=== PATIENT | male | born 1965 | race Caucasian/White ===

== ENCOUNTER 2017-07-23 09:53 | Inpatient (IN) | payer OTHER ==
[~2017-07-23] VITALS: Ht 160 cm; Wt 55.5 kg
[2017-07-23] MEDS ORDERED: LOSA1TAB19 PO (11:32)
[2017-07-23] MEDS ORDERED: AMLO-147 PO (11:32)
[2017-07-23] MEDS ORDERED: ALLO100T PO (11:32)
[2017-07-23] MEDS ORDERED: ERGO500037 PO (11:32)
[2017-07-23] MEDS ORDERED: ASPI81TA3 PO (11:32)
[2017-07-23] MEDS ORDERED: CALC667T PO (11:32)
[2017-07-23] MEDS: AMLODIPINE 10 MG TAB PO SCH (12:30)
[2017-07-23] MEDS ORDERED: ONDA4SOL2 IV* (12:37)
[2017-07-23] MEDS ORDERED: ACET325T33 PO (12:37)
[2017-07-23 13:25] VITALS: BP 154/72; PULSE 78; RESP 20
[2017-07-23] MEDS ORDERED: DEXTROSE 50% 50 ML SYRINGE IV PRN ×2 (13:30)
[2017-07-23] MEDS ORDERED: GLUCAGON 1 MG INJ IM PRN (13:30)
[2017-07-23] MEDS ORDERED: GLUCOSE GEL 15 GRAM TUBE PO PRN ×2 (13:30)
[2017-07-23] MEDS ORDERED: GLUCOSE GEL 15 GRAM TUBE BUCCAL PRN (13:30)
[2017-07-23] MEDS: ASPIRIN 81 MG TAB PO SCH (13:35)
[2017-07-23] MEDS: HYDROCHLOROTHIAZIDE 12.5 MG CAP PO SCH (13:35)
[2017-07-23] MEDS: LOSARTAN 50 MG TAB PO SCH (13:35)
[2017-07-23 13:40] LABS: BASOPHILS % 0.4 % (0.0-2.0); EOSINOPHILS # 0.7 10^3/ul (0.0-0.5); EOSINOPHILS % 10.4 % (0.0-7.0); HEMATOCRIT 25.2 % (42.0-52.0); HEMOGLOBIN 8.5 g/dl (14.0-18.0); LYMPHOCYTES # 1.5 10^3/ul (0.8-2.9); LYMPHOCYTES % 20.9 % (15.0-51.0); MEAN CORPUSCULAR HEMOGLOBIN 28.7 pg (29.0-33.0); MEAN CORPUSCULAR HGB CONC 33.7 g/dl (32.0-37.0); MEAN CORPUSCULAR VOLUME 85.1 fl (82.0-101.0); MEAN PLATELET VOLUME 9.9 fl (7.4-10.4); MONOCYTE # 0.7 10^3/ul (0.3-0.9); MONOCYTES % 9.5 % (0.0-11.0); NEUTROPHIL # 4.1 10^3/ul (1.6-7.5); NEUTROPHILS % 58.5 % (39.0-77.0); PLATELET COUNT 294 10^3/UL (140-415); RED BLOOD COUNT 2.96 10^6/ul (4.70-6.10); RED CELL DISTRIBUTION WIDTH 12.9 % (11.5-14.5)
[2017-07-23 13:47] LABS: PROTIME 13.2 Sec (12.2-14.2)
[2017-07-23 13:48] LABS: PARTIAL THROMBOPLASTIN TIME 30.3 Sec (25.0-35.0)
[2017-07-23 13:49] LABS: ALBUMIN 3.7 g/dl (3.3-4.9); ALBUMIN/GLOBULIN RATIO 1.15; BILIRUBIN,INDIRECT 0.1 mg/dl (0-1.1); BILIRUBIN,TOTAL 0.1 mg/dl (0.2-1.3); CALCIUM 8.9 mg/dl (8.4-10.2); CREATININE 7.58 mg/dl (0.61-1.24); POTASSIUM 4.4 mmol/L (3.5-5.1); TOTAL PROTEIN 6.9 g/dl (6.1-8.1)
--- NOTE | 2017-07-23 14:04 | RADRPT ---
PROCEDURE: XR Chest. CLINICAL INDICATION: Cough and congestion. TECHNIQUE: Single frontal view. COMPARISON: None. FINDINGS: The lungs are clear. The heart size is normal. There is no pleural effusion. There is no pneumothorax. IMPRESSION: 1. Normal chest radiograph. RPTAT: QQ .Morgan Frederick MD, Date Time Electronically viewed and signed by .Morgan Frederick MD, on 07/23/2017 14:04 .R/
[2017-07-23 14:47] VITALS: BP 132/68; RESP 18
[2017-07-23] MEDS ORDERED: CALCIUM ACETATE 667 MG CAP PO SCH (17:35)
[2017-07-23] MEDS: CALCIUM ACETATE 667 MG CAP PO SCH (17:40)
[2017-07-23] MEDS: ERGOCALCIFEROL 50,000 UNIT CAP PO SCH (17:41)
[2017-07-23] MEDS: INSULIN ASPART [NOVOLOG] 3 ML PEN SC SCH ×2 (17:42→21:09)
[2017-07-23 18:10] LABS: HAAIG REFLEX REFLEX FILED
--- NOTE | 2017-07-23 18:30 | QN ---
Documentation Comment [id number] hp LATASHA SHRESTHA MD Jul 23, 2017 18:30
[2017-07-23 19:15] LABS: HEPATITIS B CORE ANTIBODY NEGATIVE (NEGATIVE)
[2017-07-23] MEDS ORDERED: DEXTROSE 5%-0.45% NACL 500 ML IV SCH (19:30)
[2017-07-23 20:00] VITALS: Ht 160 cm; Wt 55.5 kg
[2017-07-23 20:10] VITALS: BP 139/77; RESP 18
--- NOTE | 2017-07-23 20:34 | HP ---
DATE OF ADMISSION: 07/23/2017 HISTORY OF PRESENT ILLNESS: Alvaro Grady is a 51-year-old male who has history of CKD V, diabetes mellitus, hypertension, history of diabetic retinopathy, history of nephrotic-range proteinuria, was seen in the office by Dr. wolfe and patient noted to have stage V kidney disease and was instructed to have hemodialysis started with catheter placement. The patient was sent here to be admitted for Uruy-V-Naomhihm placement and initiation of hemodialysis. The patient agreed. Chest x-ray done, negative. The patient's laboratory data done shows sodium 130, potassium 4.4, BUN of 80 and creatinine 7.58, hematocrit 25.2, platelet count of 294. PAST MEDICAL HISTORY: Diabetes, hypertension, diabetic retinopathy, anemia, nephrotic-range proteinuria. ALLERGY HISTORY: NEGATIVE. FAMILY HISTORY: Diabetes and hypertension. SOCIAL HISTORY: Social drinking. MEDICATIONS AT HOME: Listed as: 1. Tylenol. 2. Allopurinol. 3. Amlodipine. 4. Aspirin. 5. PhosLo. 6. Vitamin D2. 7. Hydrochlorothiazide. 8. Losartan. 9. Zofran. REVIEW OF SYSTEMS: HEENT: Diabetic retinopathy. RESPIRATORY: Unremarkable. CARDIOVASCULAR: No chest pain, palpitations. ABDOMEN: Dyspepsia and poor p.o. intake. EXTREMITIES: No swelling. CENTRAL NERVOUS SYSTEM: No numbness, tingling. SKIN: Mild pruritus. PHYSICAL EXAMINATION: GENERAL: The patient is a pale-looking male, awake, alert. VITAL SIGNS: Stable. HEAD: Atraumatic, normocephalic. Pupils equal, reactive to light. NECK: Supple. There is no JVD. LUNGS: Clear. CARDIOVASCULAR: S1, S2 is normal. No rub or murmur. ABDOMEN: Soft, nontender. Bowel sounds present. No palpable mass or hepatosplenomegaly. EXTREMITIES: There is no cyanosis, clubbing, edema. CENTRAL NERVOUS SYSTEM: The patient is awake, alert with no focal deficit. LABORATORY DATA: As mentioned above. IMPRESSION: 1. The patient has chronic kidney disease V. 2. The patient has hypertension. 3. Diabetes mellitus. 4. Diabetic nephropathy. 5. Anemia of chronic kidney disease. 6. The patient has nephrotic-range proteinuria. PLAN: To give this patient diabetic renal diet, sliding scale, blood pressure medications to be resumed, Duqz-I-Ncaekure placement, hemodialysis, hepatitis panel. Orders were done. Dictated By: LATASHA SHRESTHA MD BS/CORTEZ Conf#: [id number] DID#: [id number]
[2017-07-24] VITALS (8 sets, daily range): BP systolic 133–168; BP diastolic 69–86; PULSE 78–84; RESP 18–21
[2017-07-24] MEDS: DEXTROSE 5%-0.45% NACL 500 ML IV SCH ×2 (00:24→20:38)
[2017-07-24] MEDS ORDERED: ACCU-CHEK XX SCH ×2 (02:00)
[2017-07-24] MEDS: ACCU-CHEK XX SCH (02:00)
[2017-07-24 06:17] LABS: ALBUMIN 3.4 g/dl (3.3-4.9); ALBUMIN/GLOBULIN RATIO 1.21; CALCIUM 8.5 mg/dl (8.4-10.2); CREATININE 7.61 mg/dl (0.61-1.24); POTASSIUM 4.9 mmol/L (3.5-5.1); TOTAL PROTEIN 6.2 g/dl (6.1-8.1)
[2017-07-24] MEDS: CALCIUM ACETATE 667 MG CAP PO SCH ×4 (07:35→17:22)
[2017-07-24] MEDS: ASPIRIN 81 MG TAB PO SCH (08:35)
[2017-07-24] MEDS: LOSARTAN 50 MG TAB PO SCH (08:36)
[2017-07-24] MEDS: AMLODIPINE 10 MG TAB PO SCH (08:36)
[2017-07-24] MEDS: HYDROCHLOROTHIAZIDE 12.5 MG CAP PO SCH (08:36)
[2017-07-24] MEDS: INSULIN ASPART [NOVOLOG] 3 ML PEN SC SCH ×4 (08:44→21:00)
[2017-07-24] MEDS ORDERED: HEPARIN 1000 UNITS/ML 10 ML INJ ONE (09:30)
[2017-07-24] MEDS ORDERED: LIDOCAINE 1% (MDV) 20 ML INJ ONE (09:30)
[2017-07-24] MEDS ORDERED: MIDAZOLAM 1 MG/ML 2 ML INJ ONE (10:00)
[2017-07-24] MEDS ORDERED: FENTAnyl 50 MCG/ML VIAL ONE (10:00)
--- NOTE | 2017-07-24 11:56 | RADRPT ---
PROCEDURE: PLACEMENT OF RIGHT INTERNAL JUGULAR VENOUS TUNNELED DIALYSIS CATHETER. CLINICAL INDICATION: Renal failure. TECHNIQUE: Prior to the procedure, informed consent was obtained. Risks including bleeding, infection, and pneu mothorax were explained to the patient and/or the patient's family. The patient and/or the patient's family understood and was willing to proceed. A procedural pause was performed. The patient's name, date of , and procedure to be performed were verified. The central line was inserted with all elements of maximal sterile barrier technique. All of the following were used: head covering, facial mask, sterile gown, sterile gloves, a large sterile sheet, hand hygiene, and 2% chlorhexidine for cutaneous antisepsis. The right neck and anterior/superior chest wall was prepped and draped in usu al sterile fashion. Limited sonography of the right neck was then performed. Noted is a patent right internal jugular ve in. Ultrasound images were recorded and stored in the patient's medical record. Following the local injection of Xylocaine, the right internal jugular vein was punctured under sono graphic guidance with a 20-gauge needle through which a 0.018 inch floppy tip guidewire was advanced into the superior vena cava. The tract was dilated to 5 Indonesian and the wire was then replaced with a 0.035 in Amplatz guidewire. A tunnel was then created from the anterior lateral aspect of the sup erior right chest wall to the puncture site in the neck and the catheter was pulled through the trac t. Serial dilatation was then performed and a 16 Indonesian peel away sheath was introduced. The 14.5 Indonesian 23cm tip to cuff Angiodynamics BioFlo DuraMax dialysis catheter was advanced through the 16 F rench peel-away sheath. The tip of the catheter was confirmed in position within the right atrium. T he peel-away sheath was removed. The 2 ports were each flushed with 2.3 ml of 1:1000 heparin. The c atheter was secured to the skin with 2-0 silk. The wound in the neck was closed with 4-0 Vicryl suture using subcuticular running technique. The site was dressed. The patient tolerated the proce dure well. COMPARISON: None. FINDINGS: Final radiographic images demonstrate the tip of the catheter in the upper right atrium. A total of 0.2 minutes of fluoroscopy time was used. The ultrasound images demonstrate the needle entering th e jugular vein. Ultrasound images were recorded and stored in the patient's medical record. 5 image s of the chest were obtained with image intensifier. IMPRESSION: 1. Percutaneous insertion of right internal jugular dialysis tunneled dialysis catheter under fluoro scopic and sonographic guidance. RPTAT: QQ .Morgan Frederick MD, MD Date Time Electronically viewed and signed by .Morgan Frederick MD, MD on 07/24/2017 11:56 .R/
[2017-07-24] MEDS: ERGOCALCIFEROL 50,000 UNIT CAP PO SCH (14:36)
--- NOTE | 2017-07-24 19:47 | PN ---
Date/Time of Note Date/Time of Note DATE: 07/24/17 TIME: 19:46 Assessment/Plan VTE Prophylaxis VTE Prophylaxis Intervention: other Lines/Catheters IV C[facility]ter Type (from [facility]): perma cath Assessment/Plan Chief Complaint/Hosp Course IMPRESSION: 1. The patient has chronic kidney disease V. 2. The patient has hypertension. 3. Diabetes mellitus. 4. Diabetic nephropathy. 5. Anemia of chronic kidney disease. 6. The patient has nephrotic-range proteinuria. 7 s/p permacath placement plan hd Problems: Subjective 24 Hr Interval Summary Respiratory: no complaints Cardiovascular: no complaints Gastrointestinal: no complaints Genitourinary: no complaints Exam/Review of Systems Vital Signs Vitals Vital Signs Date Time Temp Pulse Resp B/P Pulse Ox O2 Delivery O2 Flow Rate FiO2 07/24/17 15:30 82 07/24/17 15:30 16 07/24/17 08:07 98.0 133/75 100 07/23/17 13:25 Room Air Intake and Output 07/23/17 07/23/17 07/24/17 15:00 23:00 07:00 Intake Total 605 ml Balance 605 ml Exam Neck: supple Respiratory: clear to auscultation Cardiovascular: regular rate and rhythm Gastrointestinal: bowel sounds (+), soft Extremities: No edema Results Result Diagram: 07/23/17 1259 07/24/17 0510 Results 24 hrs Laboratory Tests Test 07/23/17 21:02 07/24/17 02:08 07/24/17 05:10 07/24/17 08:01 Bedside Glucose 230 H 194 182 Sodium Level 139 Potassium Level 4.9 Chloride Level 107 Carbon Dioxide Level 20 L Anion Gap 17 H Blood Urea Nitrogen 90 H Creatinine 7.61 H Glucose Level 165 Calcium Level 8.5 Total Bilirubin 0.0 L Direct Bilirubin 0.00 Indirect Bilirubin 0.0 Aspartate Amino Transf (AST/SGOT) 15 Alanine Aminotransferase (ALT/SGPT) 23 Alkaline Phosphatase 77 Total Protein 6.2 Albumin 3.4 Globulin 2.80 Albumin/Globulin Ratio 1.21 Test 07/24/17 12:04 07/24/17 17:14 Bedside Glucose 130 231 H Medications Medications Current Medications Amlodipine Besylate (Norvasc) 10 mg DAILY PO ; Start 07/23/17 at 12:30 Aspirin (Aspirin) 81 mg DAILY PO Last administered on 07/23/17t 13:35; Admin Dose 81 MG; Start 07/23/17 at 12:30 Losartan Potassium (Cozaar) 50 mg DAILY PO Last administered on 07/23/17 13: 35; Admin Dose 50 MG; Start 07/23/17 at 13:00 Hydrochlorothiazide (Hydrochlorothiazide) 12.5 mg DAILY PO Last administered on 07/23/17 13:35; Admin Dose 12.5 MG; Start 07/23/17 at 13:00 Diagnostic Test (Pha) (Accu-Chek) 1 ea 02 XX ; Start 07/24/17 at 02:00 Miscellaneous Information 1 ea NOTE XX ; Start 07/23/17 at 13:30 Glucose (Glutose) 15 gm Q15M PRN PO DECREASED GLUCOSE; Start 07/23/17 at 13:30 Glucose (Glutose) 22.5 gm Q15M PRN PO DECREASED GLUCOSE; Start 07/23/17 at 13: 30 Dextrose (D50w Syringe) 25 ml Q15M PRN IV DECREASED GLUCOSE; Start 07/23/17 at 13:30 Dextrose (D50w Syringe) 50 ml Q15M PRN IV DECREASED GLUCOSE; Start 07/23/17 at 13:30 Glucagon (Glucagen) 1 mg Q15M PRN IM DECREASED GLUCOSE; Start 07/23/17 at 13: 30 Glucose (Glutose) 15 gm Q15M PRN BUCCAL DECREASED GLUCOSE; Start 07/23/17 at 13:30 Ergocalciferol 00925 unit 50,000 unit MoTu PO Last administered on 07/24/17 14:36; Admin Dose 50,000 UNIT; Start 07/23/17 at 14:00 Dextrose/Sodium Chloride 500 ml @ 0 mls/hr Q0M IV ; Start 07/23/17 at 19:30 Dextrose/Sodium Chloride (D5-1/2ns) 500 ml @ 25 mls/hr Q20H IV Last administered on 07/24/17 00:24; Admin Dose 25 MLS/HR; Start 07/24/17 at 00:30 LATASHA SHRESTHA MD Jul 24, 2017 19:47
[2017-07-25] VITALS (8 sets, daily range): BP systolic 121–155; BP diastolic 70–79; PULSE 80–84; RESP 18
[2017-07-25] MEDS: ACCU-CHEK XX SCH (02:00)
[2017-07-25 06:35] LABS: CALCIUM 9.1 mg/dl (8.4-10.2); CREATININE 5.21 mg/dl (0.61-1.24); POTASSIUM 4.7 mmol/L (3.5-5.1)
[2017-07-25] MEDS: LOSARTAN 50 MG TAB PO SCH (09:00)
[2017-07-25] MEDS: AMLODIPINE 10 MG TAB PO SCH (09:00)
[2017-07-25] MEDS: HYDROCHLOROTHIAZIDE 12.5 MG CAP PO SCH (09:00)
[2017-07-25] MEDS: ASPIRIN 81 MG TAB PO SCH (09:18)
[2017-07-25] MEDS: INSULIN ASPART [NOVOLOG] 3 ML PEN SC SCH ×4 (09:18→20:20)
[2017-07-25] MEDS: CALCIUM ACETATE 667 MG CAP PO SCH ×3 (09:18→17:21)
[2017-07-25] MEDS: DEXTROSE 5%-0.45% NACL 500 ML IV SCH (17:22)
--- NOTE | 2017-07-25 19:14 | PN ---
Date/Time of Note Date/Time of Note DATE: 07/25/17 TIME: 19:13 Assessment/Plan VTE Prophylaxis VTE Prophylaxis Intervention: other Lines/Catheters [facility] Assessment/Plan Chief Complaint/Hosp Course IMPRESSION: 1. The patient has chronic kidney disease V.on hd 2. The patient has hypertension. 3. Diabetes mellitus. 4. Diabetic nephropathy. 5. Anemia of chronic kidney disease. 6. The patient has nephrotic-range proteinuria. 7 s/p permacath placement on hd plan hd arrange for out pt hd Problems: Subjective 24 Hr Interval Summary Respiratory: no complaints Cardiovascular: no complaints Gastrointestinal: no complaints Exam/Review of Systems Vital Signs Vitals Vital Signs Date Time Temp Pulse Resp B/P Pulse Ox O2 Delivery O2 Flow Rate FiO2 07/25/17 12:45 84 07/25/17 12:45 16 07/25/17 08:16 98.3 135/77 99 07/23/17 13:25 Room Air Intake and Output 07/24/17 07/24/17 07/25/17 14:59 22:59 06:59 Intake Total 1575 ml 310 ml Output Total 400 ml Balance 1175 ml 310 ml Exam Neck: supple Respiratory: clear to auscultation Cardiovascular: regular rate and rhythm Gastrointestinal: bowel sounds (+), soft Musculoskeletal: nl extremities to inspection Extremities: normal pulses Results Result Diagram: 07/23/17 1259 07/25/17 0522 Results 24 hrs Laboratory Tests Test 07/24/17 20:09 07/25/17 05:22 07/25/17 08:30 07/25/17 11:42 Bedside Glucose 167 169 239 H Sodium Level 141 Potassium Level 4.7 Chloride Level 104 Carbon Dioxide Level 29 Anion Gap 13 Blood Urea Nitrogen 51 #H Creatinine 5.21 #H Glucose Level 177 Calcium Level 9.1 Test 07/25/17 17:14 Bedside Glucose 158 Medications Medications Current Medications Amlodipine Besylate (Norvasc) 10 mg DAILY PO ; Start 07/23/17 at 12:30 Aspirin (Aspirin) 81 mg DAILY PO Last administered on 07/25/17 09:18; Admin Dose 81 MG; Start 07/23/17 at 12:30 Losartan Potassium (Cozaar) 50 mg DAILY PO Last administered on 07/23/17 13: 35; Admin Dose 50 MG; Start 07/23/17 at 13:00 Hydrochlorothiazide (Hydrochlorothiazide) 12.5 mg DAILY PO Last administered on 07/23/17 13:35; Admin Dose 12.5 MG; Start 07/23/17 at 13:00 Diagnostic Test (Pha) (Accu-Chek) 1 ea 02 XX ; Start 07/24/17 at 02:00 Miscellaneous Information 1 ea NOTE XX ; Start 07/23/17 at 13:30 Glucose (Glutose) 15 gm Q15M PRN PO DECREASED GLUCOSE; Start 07/23/17 at 13:30 Glucose (Glutose) 22.5 gm Q15M PRN PO DECREASED GLUCOSE; Start 07/23/17 at 13: 30 Dextrose (D50w Syringe) 25 ml Q15M PRN IV DECREASED GLUCOSE; Start 07/23/17 at 13:30 Dextrose (D50w Syringe) 50 ml Q15M PRN IV DECREASED GLUCOSE; Start 07/23/17 at 13:30 Glucagon (Glucagen) 1 mg Q15M PRN IM DECREASED GLUCOSE; Start 07/23/17 at 13: 30 Glucose (Glutose) 15 gm Q15M PRN BUCCAL DECREASED GLUCOSE; Start 07/23/17 at 13:30 Ergocalciferol 55046 unit 50,000 unit MoTu PO Last administered on 07/24/17 14:36; Admin Dose 50,000 UNIT; Start 07/23/17 at 14:00 Dextrose/Sodium Chloride 500 ml @ 0 mls/hr Q0M IV ; Start 07/23/17 at 19:30 Dextrose/Sodium Chloride (D5-1/2ns) 500 ml @ 25 mls/hr Q20H IV Last administered on 07/25/17 17:22; Admin Dose 25 MLS/HR; Start 07/24/17 at 00:30 Clonidine (Catapres) 0.1 mg Q6H PRN PO ELEVATED SYSTOLIC BP Last administered on 07/24/17 23:14; Admin Dose 0.1 MG; Start 07/24/17 at 23:30 LATASHA SHRESTHA MD Jul 25, 2017 19:14
[2017-07-26] VITALS (9 sets, daily range): BP systolic 112–164; BP diastolic 63–89; PULSE 68–77; RESP 16–20
[2017-07-26] MEDS: ACCU-CHEK XX SCH (02:06)
[2017-07-26] MEDS: INSULIN ASPART [NOVOLOG] 3 ML PEN SC SCH ×4 (08:08→20:08)
[2017-07-26] MEDS: CALCIUM ACETATE 667 MG CAP PO SCH ×3 (08:08→17:17)
[2017-07-26] MEDS: FOLIC ACID 1 MG TAB PO SCH (08:08)
[2017-07-26] MEDS: ASPIRIN 81 MG TAB PO SCH (08:08)
[2017-07-26] MEDS: MULTIVIT/CA CARB/B CMPLX/FA TAB PO SCH (08:08)
[2017-07-26] MEDS: HYDROCHLOROTHIAZIDE 12.5 MG CAP PO SCH (08:10)
[2017-07-26] MEDS: LOSARTAN 50 MG TAB PO SCH (08:10)
[2017-07-26] MEDS: AMLODIPINE 10 MG TAB PO SCH (08:11)
--- NOTE | 2017-07-26 16:56 | PN ---
Date/Time of Note Date/Time of Note DATE: 07/26/17 TIME: 16:55 Assessment/Plan VTE Prophylaxis VTE Prophylaxis Intervention: other Lines/Catheters IV [facility] perma cath Assessment/Plan Chief Complaint/Hosp Course IMPRESSION: 1. The patient has chronic kidney disease V.on hd 2. The patient has hypertension. 3. Diabetes mellitus. 4. Diabetic nephropathy. 5. Anemia of chronic kidney disease. 6. The patient has nephrotic-range proteinuria. 7 s/p permacath placement on hd plan hd arrange for out pt hd Problems: Subjective 24 Hr Interval Summary Cardiovascular: no complaints Gastrointestinal: no complaints Genitourinary: no complaints Musculoskeletal: no complaints Exam/Review of Systems Vital Signs Vitals Vital Signs Date Time Temp Pulse Resp B/P Pulse Ox O2 Delivery O2 Flow Rate FiO2 07/26/17 14:12 98.4 85 16 114/70 100 07/23/17 13:25 Room Air Intake and Output 07/25/17 07/25/17 07/26/17 14:59 22:59 06:59 Intake Total 400 ml 535 ml Output Total 400 ml Balance 0 ml 535 ml Exam Respiratory: clear to auscultation Cardiovascular: regular rate and rhythm Gastrointestinal: soft Musculoskeletal: nl extremities to inspection Extremities: normal pulses Results Result Diagram: 07/23/17 1259 07/25/17 0522 Results 24 hrs Laboratory Tests Test 07/25/17 17:14 07/25/17 20:17 07/26/17 02:04 07/26/17 07:51 Bedside Glucose 158 201 182 169 Test 07/26/17 11:44 Bedside Glucose 317 H Medications Medications Current Medications Amlodipine Besylate (Norvasc) 10 mg DAILY PO Last administered on 07/26/17 08 :11; Admin Dose 10 MG; Start 07/23/17 at 12:30 Aspirin (Aspirin) 81 mg DAILY PO Last administered on 07/26/17 08:08; Admin Dose 81 MG; Start 07/23/17 at 12:30 Losartan Potassium (Cozaar) 50 mg DAILY PO Last administered on 07/26/17 08: 10; Admin Dose 50 MG; Start 07/23/17 at 13:00 Hydrochlorothiazide (Hydrochlorothiazide) 12.5 mg DAILY PO Last administered on 07/26/17 08:10; Admin Dose 12.5 MG; Start 07/23/17 at 13:00 Diagnostic Test (Pha) (Accu-Chek) 1 ea 02 XX Last administered on 07/26/17 02 :06; Admin Dose 1 EA; Start 07/24/17 at 02:00 Miscellaneous Information 1 ea NOTE XX ; Start 07/23/17 at 13:30 Glucose (Glutose) 15 gm Q15M PRN PO DECREASED GLUCOSE; Start 07/23/17 at 13:30 Glucose (Glutose) 22.5 gm Q15M PRN PO DECREASED GLUCOSE; Start 07/23/17 at 13: 30 Dextrose (D50w Syringe) 25 ml Q15M PRN IV DECREASED GLUCOSE; Start 07/23/17 at 13:30 Dextrose (D50w Syringe) 50 ml Q15M PRN IV DECREASED GLUCOSE; Start 07/23/17 at 13:30 Glucagon (Glucagen) 1 mg Q15M PRN IM DECREASED GLUCOSE; Start 07/23/17 at 13: 30 Glucose (Glutose) 15 gm Q15M PRN BUCCAL DECREASED GLUCOSE; Start 07/23/17 at 13:30 Ergocalciferol (Drisdol) 50,000 unit MoTu PO Last administered on 07/24/17 14 :36; Admin Dose 50,000 UNIT; Start 07/23/17 at 14:00 Clonidine (Catapres) 0.1 mg Q6H PRN PO ELEVATED SYSTOLIC BP Last administered on 07/24/17 23:14; Admin Dose 0.1 MG; Start 07/24/17 at 23:30 Folic Acid (Folic Acid) 1 mg DAILY PO Last administered on 07/26/17 08:08; Admin Dose 1 MG; Start 07/26/17 at 09:00 Multivit/Ca Carb/ B Cmplx/FA/Prenat (Viki-[place]) 1 tab DAILY PO Last administered on 07/26/17 08:08; Admin Dose 1 TAB; Start 07/26/17 at 09:00 LATASHA SHRESTHA MD Jul 26, 2017 16:56
[2017-07-26 17:57] LABS: PHOSPHORUS 3.2 mg/dl (2.5-4.9)
[2017-07-27] MEDS: ACCU-CHEK XX SCH (01:55)
[2017-07-27 02:00] VITALS: BP 127/72; RESP 18
[2017-07-27 06:34] LABS: CALCIUM 8.8 mg/dl (8.4-10.2); CREATININE 4.08 mg/dl (0.61-1.24); POTASSIUM 4.2 mmol/L (3.5-5.1)
[2017-07-27 07:20] VITALS: BP 134/79; RESP 16
[2017-07-27] MEDS: CALCIUM ACETATE 667 MG CAP PO SCH ×3 (07:41→17:38)
[2017-07-27] MEDS: INSULIN ASPART [NOVOLOG] 3 ML PEN SC SCH ×3 (07:44→17:51)
[2017-07-27] MEDS: LOSARTAN 50 MG TAB PO SCH (08:17)
[2017-07-27] MEDS: MULTIVIT/CA CARB/B CMPLX/FA TAB PO SCH (08:17)
[2017-07-27] MEDS: ASPIRIN 81 MG TAB PO SCH (08:17)
[2017-07-27] MEDS: AMLODIPINE 10 MG TAB PO SCH (08:18)
[2017-07-27] MEDS: FOLIC ACID 1 MG TAB PO SCH (08:18)
[2017-07-27] MEDS: HYDROCHLOROTHIAZIDE 12.5 MG CAP PO SCH (08:18)
--- NOTE | 2017-07-27 13:27 | PN ---
Date/Time of Note Date/Time of Note DATE: 07/27/17 TIME: 13:24 Assessment/Plan VTE Prophylaxis VTE Prophylaxis Intervention: ambulation Lines/Catheters IV [facility] Type (from [facility]): PERMACATH Assessment/Plan Chief Complaint/Hosp Course 1. The patient has chronic kidney disease V.on hd 2. The patient has hypertension. 3. Diabetes mellitus. 4. Diabetic nephropathy. 5. Anemia of chronic kidney disease. 6. The patient has nephrotic-range proteinuria. 7 s/p permacath placement on hd Problems: Assessment/Plan 1. Outpatient HD 2. Possible discharge Subjective 24 Hr Interval Summary Constitutional: improved, no complaints Exam/Review of Systems Vital Signs Vitals Vital Signs Date Time Temp Pulse Resp B/P Pulse Ox O2 Delivery O2 Flow Rate FiO2 07/27/17 07:20 98.0 74 16 134/79 99 07/23/17 13:25 Room Air Intake and Output 07/26/17 07/26/17 07/27/17 15:00 23:00 07:00 Intake Total 650 ml 760 ml 400 ml Output Total 1500 ml Balance -850 ml 760 ml 400 ml Exam Constitutional: alert, oriented Neck: supple Respiratory: clear to auscultation Cardiovascular: regular rate and rhythm Results Result Diagram: 07/23/17 1259 07/27/17 0440 Results 24 hrs Laboratory Tests Test 07/26/17 17:15 07/26/17 17:28 07/26/17 20:03 07/27/17 02:03 Bedside Glucose 168 203 227 H Phosphorus Level 3.2 Parathyroid Hormone (Intact) Test 07/27/17 04:40 07/27/17 07:40 07/27/17 11:45 Sodium Level 139 Potassium Level 4.2 Chloride Level 100 Carbon Dioxide Level 30 Anion Gap 13 Blood Urea Nitrogen 30 #H Creatinine 4.08 #H Glucose Level 181 Calcium Level 8.8 Bedside Glucose 165 208 Medications Medications Current Medications Amlodipine Besylate (Norvasc) 10 mg DAILY PO Last administered on 07/27/17 08: 18; Admin Dose 10 MG; Start 07/23/17 at 12:30 Aspirin (Aspirin) 81 mg DAILY PO Last administered on 07/27/17 08:17; Admin Dose 81 MG; Start 07/23/17 at 12:30 Losartan Potassium (Cozaar) 50 mg DAILY PO Last administered on 07/27/17 08:17 ; Admin Dose 50 MG; Start 07/23/17 at 13:00 Hydrochlorothiazide (Hydrochlorothiazide) 12.5 mg DAILY PO Last administered on 07/27/17 08:18; Admin Dose 12.5 MG; Start 07/23/17 at 13:00 Diagnostic Test (Pha) (Accu-Chek) 1 ea 02 XX Last administered on 07/26/17 02 :06; Admin Dose 1 EA; Start 07/24/17 at 02:00 Miscellaneous Information 1 ea NOTE XX ; Start 07/23/17 at 13:30 Glucose (Glutose) 15 gm Q15M PRN PO DECREASED GLUCOSE; Start 07/23/17 at 13:30 Glucose (Glutose) 22.5 gm Q15M PRN PO DECREASED GLUCOSE; Start 07/23/17 at 13: 30 Dextrose (D50w Syringe) 25 ml Q15M PRN IV DECREASED GLUCOSE; Start 07/23/17 at 13:30 Dextrose (D50w Syringe) 50 ml Q15M PRN IV DECREASED GLUCOSE; Start 07/23/17 at 13:30 Glucagon (Glucagen) 1 mg Q15M PRN IM DECREASED GLUCOSE; Start 07/23/17 at 13: 30 Glucose (Glutose) 15 gm Q15M PRN BUCCAL DECREASED GLUCOSE; Start 07/23/17 at 13:30 Ergocalciferol (Drisdol) 50,000 unit MoTu PO Last administered on 07/24/17 14 :36; Admin Dose 50,000 UNIT; Start 07/23/17 at 14:00 Clonidine (Catapres) 0.1 mg Q6H PRN PO ELEVATED SYSTOLIC BP Last administered on 07/24/17 23:14; Admin Dose 0.1 MG; Start 07/24/17 at 23:30 Folic Acid (Folic Acid) 1 mg DAILY PO Last administered on 07/27/17 08:18; Admin Dose 1 MG; Start 07/26/17 at 09:00 Multivit/Ca Carb/ B Cmplx/FA/Prenat (V[place]) 1 tab DAILY PO Last administered on 07/27/17 08:17; Admin Dose 1 TAB; Start 07/26/17 at 09:00 IVONNE MCINTOSH Jul 27, 2017 13:27
[2017-07-27 14:00] VITALS: BP 113/64; RESP 16
--- NOTE | 2017-07-27 16:59 | PDOCDIS ---
Discharge Instructions CONDITION Patient Condition: Stable HOME CARE INSTRUCTIONS: Special Diet: 1800 ADA ACTIVITY: Activity Restrictions: Slowly Increase Activity FOLLOW UP/APPOINTMENTS Follow-up Plan f/u dr shrestha/dr wolfe 2 wks go to [facility] [phone] tomorrow for hd LATASHA SHRESTHA MD Jul 27, 2017 16:59
[2017-07-27] MEDS ORDERED: FOLI-49 PO (17:02)
[2017-07-27] MEDS ORDERED: NEPH PO (17:02)
== END 2017-07-27 18:25 | disposition home or self-care (01) | DRG 674 ==
LOC: PP2 09:53
PROVIDERS: ADMIT Internal Medicine Nephrology; ATTEND Internal Medicine Nephrology
PROC: 02H633Z Insertion of Infusion Device into Right Atrium, Percutaneous Approach (ICD-10-PCS; 2017-07-24)
PROC: B244ZZZ Ultrasonography of Right Heart (ICD-10-PCS; 2017-07-24)
PROC: 5A1D70Z Performance of Urinary Filtration, Intermittent, Less than 6 Hours Per Day (ICD-10-PCS; 2017-07-24)
PROC: 0JH63XZ Insertion of Tunneled Vascular Access Device into Chest Subcutaneous Tissue and Fascia, Percutaneous Approach (ICD-10-PCS; principal; 2017-07-24 16:00)
DX: I12.0 Hypertensive chronic kidney disease with stage 5 chronic kidney disease or end stage renal disease (principal); N18.5 Chronic kidney disease, stage 5; E11.21 Type 2 diabetes mellitus with diabetic nephropathy; E11.22 Type 2 diabetes mellitus with diabetic chronic kidney disease; E11.65 Type 2 diabetes mellitus with hyperglycemia; Z99.2 Dependence on renal dialysis; E11.319 Type 2 diabetes mellitus with unspecified diabetic retinopathy without macular edema
CPT/HCPCS: 71010; 80048; 80053; 82962; 83970; 84100; 85025; 85610; 85730; 86704; 86709; 86803; 87340; 90935; J1644; J1815; J2250; J3010

== ENCOUNTER 2017-11-15 07:55 | Emergency (ER) | END 2017-11-15 13:21 | disposition home or self-care (01) ==

== ENCOUNTER 2017-11-16 07:43 | Emergency (ER) | END 2017-11-16 16:20 | disposition home or self-care (01) ==

== ENCOUNTER 2017-11-16 18:37 | Emergency (ER) | END 2017-11-16 22:32 | disposition home or self-care (01) ==

== ENCOUNTER 2019-03-14 08:00 | Emergency (ER) | payer MEDICARE, OTHER ==
[~2019-03-14] VITALS: Ht 152.4 cm; Wt 85.0 kg
[~2019-03-14 08:00] MED LIST: AMLO5TAB4 PO; ASPI-817 PO; CALC667C PO; CLIN300C10 PO; ERGO500013 PO; FOLI-49 PO; IBUP-1542 PO; INSU100I12 SQ; LOSA1TAB22 PO; NEPH PO; OMEP20CA16 PO
[2019-03-14 08:03] VITALS: BP 169/82; PULSE 78; RESP 18; Ht 152.4 cm; Wt 85.0 kg
[2019-03-14] MEDS ORDERED: TETRACAINE 0.5% 4 ML OPH BOTH EYES ONE (09:00)
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
== END 2019-03-14 12:55 | disposition home or self-care (01) ==
LOC: FTE 08:00
DX: H53.2 Diplopia (principal); I10 Essential (primary) hypertension; E11.9 Type 2 diabetes mellitus without complications; Z79.4 Long term (current) use of insulin; Z79.82 Long term (current) use of aspirin; Z87.891 Personal history of nicotine dependence
CPT/HCPCS: 76536

== ENCOUNTER 2019-04-13 21:06 | Emergency (ER) | payer MEDICARE, OTHER ==
[~2019-04-13] VITALS: Ht 160 cm; Wt 56.8 kg
[2019-04-13 21:15] VITALS: Ht 160 cm; Wt 56.8 kg
--- NOTE | 2019-04-14 00:33 | ERD ---
ER Documentation Chief Complaint Chief Complaint R big toe pain w/ white pus,L 2nd toe swelling,hx diabetes,dialysis HPI 53-year-old male with history of diabetes and also is on dialysis is here with complaints for toes on both of his feet. On the right foot he is complaining of redness and pain to the big toe that he first noticed yesterday and states that today some purulent drainage came out of it. He has not had any fevers. No trauma. He is ambulatory. On the left foot he is complaining of pain in his second toe secondary to hitting his foot against a wall on accident, this occurred 3 weeks ago. ROS All systems reviewed and are negative except as per history of present illness. Medications Home Meds Active Scripts Ibuprofen* (Motrin*) 600 Mg Tab, 600 MG PO Q6, #30 TAB Prov:NAVDEEP HUGHES PA-C 04/14/19 Clindamycin Hcl* (Clindamycin Hcl*) 300 Mg Capsule, 300 MG PO TID for 10 Days, CAP Prov:NAVDEEP HUGHES PA-C 04/14/19 Ibuprofen* (Motrin*) 600 Mg Tab, 600 MG PO Q6, #30 TAB Prov:ANUJA STEPHENSON PA-C 03/14/19 Reported Medications Calcium Acetate* (Calcium Acetate*) 667 Mg Capsule, 667 MG PO WITH MEALS, #30 CAP 01/11/18 Ergocalciferol (Vitamin D2) (VITAMIN D2) 50,000 Unit Capsule, 62615 UNIT PO Q SAT, CAP 01/11/18 Aspirin* (Aspirin* EC) 81 Mg Tablet.dr, 81 MG PO DAILY, TAB 01/11/18 Multivit/Ca Carb/B Cmplx/Fa* (Viki-Alexandria*) 1 Tab Tab, 1 TAB PO DAILY, TAB 01/11/18 Omeprazole* (Omeprazole*) 20 Mg Capsule.dr, 20 MG PO DAILY, #30 CAP 01/11/18 Folic Acid* (Folic Acid*) 1 Mg Tablet, 1 MG PO DAILY, TAB 01/11/18 Losartan-Hydrochlorothiazide (Losartan-HCTZ) 50-12.5 Mg Tab, 1 TAB PO DAILY, TAB 01/11/18 Amlodipine Besylate* (Norvasc*) 5 Mg Tablet, 5 MG PO DAILY, TAB 01/11/18 Insulin Lispro (Humalog Kwikpen U-100) 100 Unit/1 Ml Insuln.pen, 0 SQ BID, EA SLIDING SCALE INJECT 2-6 UNITS 01/11/18 Allergies Allergies: Coded Allergies: No Known Allergy (Unverified , 01/11/18) PMhx/Soc History of Surgery: Yes (romeo eye surgery) Anesthesia Reaction: No Hx Neurological Disorder: No Hx Respiratory Disorders: No Hx Cardiac Disorders: Yes (HTN,CHOLESTEROL,) Hx Psychiatric Problems: No Hx Miscellaneous Medical Probl: No Hx Alcohol Use: Yes (SOCIALLY) Hx Substance Use: No Hx Tobacco Use: No FmHx Family History: diabetes Physical Exam Vitals Vital Signs Date Temp Pulse Resp B/P (MAP) Pulse Ox O2 O2 Flow FiO2 Time Delivery Rate 04/13/19 98.3 89 18 183/92 98 21:15 (122) Physical Exam Const: No acute distress Head: Atraumatic Eyes: Normal Conjunctiva ENT: Normal External Ears, Nose and Mouth. Neck: Full range of motion. No meningismus. Resp: Clear to auscultation bilaterally Cardio: Regular rate and rhythm, no murmurs Right foot: Big toe distal area is erythematous, no significant swelling, mildly tender, no warmth, no bleeding or drainage Left foot: Second toe is swollen without any erythema, no warmth, sensation to light touch is intact Procedures/MDM Patient presents with cellulitis on his right great toe. I explained to him because of his history of diabetes and dialysis we need to watch this very closely. He will be given a prescription for clindamycin and instructions to return here in 1 to 2 days for follow-up examination. He also states he has trauma that occurred to his left second toe that occurred 3 weeks ago. X-rays of this were read by the radiologist as osteomyelitis in the second toe. This however did not fit the clinical picture of patient's history and physical exam and therefore I called and spoke to the radiologist who read the report and explained to him that this was trauma from 3 weeks ago which she was unaware of because he thought it was an acute trauma however given this new information that this occurred 3 weeks ago he states that now he believes it is a fracture and not related to osteomyelitis. Therefore the patient can be safely discharged home. His toe was mary ann taped and he was instructed to follow-up with orthopedics and he was given outpatient [place] follow[place]. Patient counseled regarding my diagnostic impression and care plan. Prior to discharge all questions answered. Pt agrees with treatment plan and understands strict return precautions. Pt is instructed to follow up with primary care provider within 24-48 hours. Precautionary instructions provided including instructions to return to the ER if not improving or for any worsening or changing symptoms or concerns. Departure Diagnosis: Primary Impression: Cellulitis Additional Impression: Toe fracture Condition: Stable Patient Instructions: Fracture, Toe [Closed] [place] [facility] [place] Usted se porter hecho un examen mdico de control que le indica que no est en farrukh condicin que requiera tratamiento urgente en el Departamento de Emergencia. Un estudio ms profundo y el tratamiento de huang condicin pueden esperar sin ningn riesgo hasta que usted sea atendida/o en el consultorio de huang mdico o farrukh clnica. Es responsabilidad suya arreglar farrukh humble para el seguimiento del sushil. MANEJO DE CONDICIONES NO URGENTES EN EL FUTURO 1) Si usted tiene un mdico de atencin primaria: Usted debera llamar a huang mdico de atencin primaria antes de venir al departamento de emergencia. Despus de las horas de consultorio, huang doctor o huagn asociado/a est disponible por telfono. El mdico o enfermero de michael en el servicio telefnico puede asesorarle por alanis medio para atender el problema, o sushil contrario se puede programar farrukh humble. 2) Si usted no tiene un mdico de atencin primaria: Llame al mdico o condado institucions de referencia que aparece abajo jessica las horas de consultorio para hacer farrukh humble para que le vean. SI USTED NO PUEDE PAGAR PARA JAVI UN MEDICO puede ir a: [facility] [address] [place] [address] [facility] [address] [place] [address] [facility] [address] [place] [address] [facility] [address] [place] [address] Additional Instructions: Llame al doctor MAANA y yoel farrukh HUMBLE PARA DENTRO DE 1-2 QUICK.Dgale a la secretaria que nosotros le instruimos hacer esta humble.Avise o llame si huang condicin se empeora antes de la humble. Regresa aqui si peor o no mejor. NAVDEEP HUGHES PA-C Apr 14, 2019 00:33
[2019-04-14 00:42] VITALS: BP 172/90; PULSE 72; RESP 19
== END 2019-04-14 00:45 | disposition home or self-care (01) ==
LOC: FTE 21:06
DX: S92.532A Displaced fracture of distal phalanx of left lesser toe(s), initial encounter for closed fracture (principal); L03.032 Cellulitis of left toe; I10 Essential (primary) hypertension; E11.9 Type 2 diabetes mellitus without complications; X58.XXXA Exposure to other specified factors, initial encounter; Y92.9 Unspecified place or not applicable; Z79.4 Long term (current) use of insulin; Z79.82 Long term (current) use of aspirin
CPT/HCPCS: 73630